=== PATIENT | female | born 1955 | race Asian ===

== ENCOUNTER 2017-07-19 08:16 | Outpatient (CLI) | payer BC | END 2017-07-19 17:14 | disposition home or self-care (01) | LOC: SMA 08:16 | PROVIDERS: ATTEND Internal Medicine Hospice and Palliative Medicine | DX: R92.8 Other abnormal and inconclusive findings on diagnostic imaging of breast (principal); E07.9 Disorder of thyroid, unspecified; Z85.3 Personal history of malignant neoplasm of breast | CPT/HCPCS: G0206 ==

== ENCOUNTER 2017-08-02 09:41 | Outpatient (CLI) | payer BC | END 2017-08-02 19:05 | disposition home or self-care (01) | LOC: SUS 09:41 | PROVIDERS: ATTEND Family Medicine | DX: N64.4 Mastodynia (principal); Z85.3 Personal history of malignant neoplasm of breast | CPT/HCPCS: 76642 ==

== ENCOUNTER 2018-09-05 09:36 | Outpatient (CLI) | payer BC | END 2018-09-05 21:12 | disposition home or self-care (01) | LOC: SMA 09:36 | PROVIDERS: ATTEND Internal Medicine Hospice and Palliative Medicine | DX: N64.4 Mastodynia (principal); Z85.3 Personal history of malignant neoplasm of breast; Z90.12 Acquired absence of left breast and nipple | CPT/HCPCS: 76642; 77065 ==